=== PATIENT | female | born 1995 | race American Indian/Alaskan Native ===

== ENCOUNTER 2016-08-25 09:24 | Emergency (ER) | payer MEDICAID ==
[2016-08-25] MEDS ORDERED: NACL 0.9% 1000 ML IV ONE (10:14)
[2016-08-25] MEDS ORDERED: ZOFRAN IV ONE (10:14)
--- NOTE | 2016-08-25 10:19 | Emergency Department Report ---
HPI - General Chief Complaint: Dyspnea/Respdistress Time Seen by Provider: 08/25/16 10:04 - HPI HPI: Chief complaint: Nausea vomiting and diarrhea HPI: Patient with a history of asthma states that she ate some pineapple out of a can around 3:00 this morning and around 4:00 started having nausea vomiting and diarrhea. Patient states she vomited 4 or 5 times and had 3 episodes of watery diarrhea. Patient had some cramping when she had the diarrhea but currently has no pain. Patient is still slightly nauseated. Patient states the vomiting triggered an asthma attack and she was given a nebulizer in route by the EMS and no longer has any wheezing. Patient denies any dysuria or fever. Patient denies any lightheadedness. Mode of arrival: EMS Source: Patient Began: 4 AM Duration: See above Context: See above Quality: Cramping pain that has resolved Severity: 0 out of 10 Improved with: See above Worsened with: Nothing Associated signs and symptoms: See above ED Past Medical Hx - Past Medical History Previous Medical History?: Yes Hx Psychiatric Treatment: Yes Hx Asthma: Yes Additional medical history: Seasonal Allergies. 1 previous psychiatric admission. V-fib while in childbirth - Surgical History Past Surgical History?: Yes Additional Surgical History: csection - Social History Smoking Status: Current Every Day Smoker Substance Use Type: Alcohol - Medications Home Medications: Home Medications Medication Instructions Recorded Confirmed Last Taken Type Vit-Fe Fumar-FA [ 1 tab PO QDAY #90 tablet 07/14/15 Unknown Rx Vitamin] Promethazine [Phenergan TAB] 25 mg PO Q6HR PRN #14 tab 07/14/15 Unknown Rx Ondansetron [Zofran Odt] 4 mg PO Q4-6H PRN #14 tab.rapdis 08/25/16 Unknown Rx ED Review of Systems ROS: Stated complaint: LIZETTE/FLU SYMPTOMS Other details as noted in HPI ROS Constitutional: No fever ENT: No uri symptoms Cardiovascular: No chest pain Respiratory: No cough GI: See HPI : No dysuria frequency or urgency, Skin: No rash Neuro: No focal weakness or numbness Psych: History of depression after of her child [place]/lymph: No edema Physical Exam - Physical Exam Vital Signs: Vital Signs 08/25/16 09:47 Temperature 98.7 F Pulse Rate 105 H Respiratory 16 Rate Blood Pressure 106/53 O2 Sat by Pulse 99 Oximetry Physical Exam: GENERAL: The patient is well-developed well-nourished . HEENT: Normocephalic. Atraumatic. Extraocular motions are intact. Patient has moist mucous membranes. NECK: Supple. No meningitic signs are noted. There is no adenopathy noted. CHEST/LUNGS: Clear to auscultation. There is no respiratory distress noted. HEART/CARDIOVASCULAR: Regular. There is no tachycardia. There is no gallop rub or murmur. ABDOMEN: Abdomen is soft, nontender. Patient has normal bowel sounds. There is no abdominal distention. SKIN: There is no rash. There is no edema. There is no diaphoresis. NEURO: The patient is awake, alert, and oriented. The patient is cooperative. The patient has no focal neurologic deficits. The patient has normal speech. MUSCULOSKELETAL: There is no tenderness or deformity. There is no limitation range of motion. There is no evidence of acute injury. ED Course Vital Signs 08/25/16 09:47 Temperature 98.7 F Pulse Rate 105 H Respiratory 16 Rate Blood Pressure 106/53 O2 Sat by Pulse 99 Oximetry - Reevaluation(s) Reevaluation #1: 08/25/16 10:19 Patient will be given a liter normal saline and some Zofran IV. ED Medical Decision Making - Lab Data Result diagrams: 08/25/16 10:06 08/25/16 10:06 Laboratory Tests 08/25/16 10:08 Urine HCG, Qual Positive A - EKG Data -: EKG Interpreted by Ms EKG shows normal: sinus rhythm Rate: normal (64) - EKG Data When compared to previous EKG there are: previous EKG unavailable Interpretation: normal EKG - Radiology Data Radiology results: report reviewed (chest x-ray is negative. Patient ultrasound shows IUP of 9 weeks 4 days) Critical care attestation.: If time is entered above; I have spent that time in minutes in the direct care of this critically ill patient, excluding procedure time. ED Disposition Clinical Impression: Intrauterine , Morning sickness Disposition: DISCHARGED TO HOME OR SELFCARE Is pt being admited?: No Does the pt Need Aspirin: No Condition: Stable Instructions: Morning Sickness (ED) Prescriptions: Ondansetron [Zofran Odt] 4 mg PO Q4-6H PRN #14 tab.rapdis PRN Reason: Nausea And Vomiting Referrals: PRIMARY CARE, [Primary Care Provider] - 3-5 Days TITO VIZCAINO MD [Staff Physician] - 7-10 days (Dr. Vizcaino is a [employer] physician) Time of Disposition: 14:54
[2016-08-25 10:20] LABS: Basophils % (Auto) 0.1 % (0.0-1.8); Eosinophils % (Auto) 0.1 % (0.0-4.3); Hematocrit 32.6 % (30.3-42.9); Mean Corpuscular HGB Conc 34 % (30-34); Mean Corpuscular Hemoglobin 29 pg (28-32); Mean Corpuscular Volume 87 fl (79-97); Platelet Count 192 K/mm3 (140-440); Red Blood Count 3.76 M/mm3 (3.65-5.03); Red Cell Distribution Width 15.9 % (13.2-15.2); White Blood Count 6.5 K/mm3 (4.5-11.0)
[2016-08-25 10:32] LABS: Bilirubin,Urine NEG (Negative); Blood,Urine NEG (Negative); Ketones,Urine 80 mg/dL (Negative); Leukocyte Esterase,Urine TR (Negative); Mucus,Urine 3+ /HPF; Nitrite,Urine NEG (Negative); Protein,Urine <15 mg/dL mg/dL (Negative); Urobilinogen,Urine < 2.0 mg/dL (<2.0); WBC,Urine 0.5 /HPF (0.0-6.0)
[2016-08-25 10:40] LABS: Anion Gap 18 mmol/L; Blood Urea Nitrogen 12 mg/dL (7-17); Calcium 8.9 mg/dL (8.4-10.2); Carbon Dioxide 19 mmol/L (22-30); Chloride 101.8 mmol/L (98-107); Glucose 132 mg/dL (65-100); Potassium 3.5 mmol/L (3.6-5.0); Sodium 135 mmol/L (137-145)
--- NOTE | 2016-08-25 11:19 | Admit Criteria Form ---
Admission Criteria Documentation: OBSTETRIC AND GYNECOLOGIC DISEASE GRG Clinical Indications for Admission to Inpatient Care (Place 'X' for any and all applicable criteria): Hospital admission is needed for appropriate care of the patient because of ANY ONE of the following (1)(2)(3): [ ]I. Hemodynamic instability, as indicated by ALL of the following (1)(2)(3)( 4)(5): [ ]a) Vital signs or other findings not as expected for chronic patient condition or baseline [ ]b) Instability indicated by ANY ONE of the following: [ ]i) Hypotension [ ]ii) Symptomatic tachycardia unresponsive to treatment (eg, analgesia, fluids, sedation as indicated) [ ]iii) Inadequate perfusion indicated by ANY ONE of the following: [ ]A. Lactic acidosis (greater than 2 mmol/ L) [ ]B. New abnormal capillary refill ( greater than 3 seconds) [ ]C. Reduced urine output [ ]D. New altered mental status [ ]iv) Orthostatic vital sign changes unresponsive to treatment (eg, fluids) [ ]v) Multiple IV fluid boluses required to maintain adequate blood pressure or perfusion [ ]vi) IV inotropic or vasopressor medication required to maintain adequate blood pressure or perfusion [ ]II. Obstetric infection requiring hospitalization indicated by ANY ONE of the following(13)(14): [ ]a) Chorioamnionitis [ ]b) Endometritis (except mild endometritis) [ ]c) Pelvic abscess [ ]d) Peritonitis [ ]e) Septic pelvic thrombophlebitis [ ]III. Amniotic fluid or pulmonary embolism(4)(5)(6) [ ]IV. Suspected peritonitis or ectopic requiring monitoring beyond scope of 24 hours or observation care(7)(8) [ ]V. compromise requiring hospitalization indicated by ALL of the following(9)(10): [ ]a) compromise indicated by ANY ONE of the following(11): [ ]i) Abnormal heart rate monitoring [ ]ii) Abnormal contraction stress test [ ]iii) Abnormal biophysical profile [ ]iv) Abnormal Doppler flow in vessels (ie, Doppler velocimetry) (12) [ ]b) Persistence of compromise indicators during evaluation and observation monitoring [ ]. Ovarian hyperstimulation syndrome requiring hospitalization[A] indicated by ALL of the following(15): [ ]a) Recent ovarian stimulation with gonadotropins, or evidence on ultrasound of spontaneous emergence of large number of ovarian follicles [ ]b) Evidence of severe ovarian hyperstimulation syndrome indicated by ANY ONE of the following: [ ]i) Abdominal pain unresponsive to oral therapy [ ]ii) Acute respiratory distress syndrome [ ]iii) Electrolyte imbalance ( eg, hyponatremia, hyperkalemia) [ ]iv) Elevated liver enzymes [ ]v) Evidence of thromboembolism [ ]vi) Hemoconcentration (hematocrit greater than 45 % (0.45)) [ ]vii) Inability to maintain oral intake adequate to prevent hemoconcentration [ ]viii) Marked hypotension from baseline (eg, SBP 20 mmHg below patients usual pressure) [ ]ix) Oliguria or anuria [ ]x) Ovarian torsion [ ]xi) Pleural or pericardial effusion on x-ray or echocardiogram [ ]xii) Rapid increase in serum creatinine to greater than 1.2 mg/dL (106 micromoles/L) or creatinine clearance less than 50 mL/min/1.73m2 (0.84 mL/ sec/1.73m2) [ ]xiii) Ruptured ovarian cyst with hemorrhage [ ]xiv) Severe abdominal pain or peritoneal signs [ ]xv) Tense ascites that cannot be managed with paracentesis in outpatient setting [ ]VII.Pelvic infection requiring hospitalization indicated by ANY ONE of the following (16): [ ]a) Outpatient treatment has failed or is not appropriate (eg, inpatient monitoring required) [ ]b) Pelvic abscess [ ]c) Surgical emergency cannot be excluded (eg, rigid abdomen) [ ]d) Vomiting precluding outpatient and observation care management VIII. loss complications requiring inpatient medical treatment indicated by ANY ONE of the following (4)(7)(9): [ ]a) Fever [ ]b) Peritonitis [ ]c) Sepsis [ ]d) Severe abdominal pain [ ]IX. or patient requiring monitoring for severe heart failure, pulmonary disease, or other comorbid condition (eg, peripartum cardiomyopathy) (4)(17) [ ]X. patient with rupture of membranes requiring hospitalization indicated by ANY ONE of the following: [ ]a) Chorioamnionitis, cloudy amniotic fluid, or other evidence of infection [ ]b) compromise or other need for monitoring (11) [ ]c) Gestation longer than 23 weeks and ANY ONE of the following: [ ]i) Abnormal (noncephalic) presentation [ ]ii) Inadequate home environment (eg, home too far from hospital, unable to rapidly return to hospital) [ ]d) Temperature greater than 100.4 degrees F (38 degrees C)( oral) [ ]e) Threatened labor requiring monitoring beyond scope (eg, over 24 hours) of observation Care [ ] XI. complications, including severe lacerations, infections, or retained placenta (19) [ ] XII.Uterine bleeding with high-risk features indicated by ANY ONE of the following (4): [ ]a) Active major hemorrhage (eg, hemorrhage) [ ]b) Coagulopathy with active bleeding [ ]c) Gestational trophoblastic disease (eg, molar ) (20 ) [ ]d) (longer than 23 weeks) and ANY ONE of the following: [ ]i) Pain [ ]ii) Placental abruption, known or suspected [ ]iii) Placenta accrete, known or suspected(21) [ ]iv) Placenta previa, known or suspected [ ]v) Vasa previa [ ]e) Severe anemia [ ]XIII. Obstetric or Gynecologic Disease, condition or symptom for which ANY ONE of the following: [ ]a) Emergency and observation care have failed or are not considered appropriate ( Also use General Criteria: Observation Care Criteria as appropriate) [ ]b) Presence of a General Admission Criteria or Pediatric General Admission Criteria The original [facility] content created by [facility] has been revised. The portions of the content which have been revised are identified through the use of italic text or in bold, and [facility] has neither reviewed nor approved the modified material.All other unmodified content is copyright [facility]. Please see references footnoted in the original [facility] edition 2016 Admission Criteria Met: Pending
--- NOTE | 2016-08-25 11:19 | XRay Report ---
CHEST 2 VIEWS INDICATION: Shortness of breath.. COMPARISON: None similar. FINDINGS: PA and lateral chest radiographs demonstrate normal cardiomediastinal silhouette. Clear lungs. Intact bones. EKG leads. CONCLUSION: No acute disease in the chest. Thank you for the opportunity to participate in this patient's care.
[2016-08-25 12:19] VITALS: BP 107/66
--- NOTE | 2016-08-25 14:08 | Ultrasound Report ---
ULTRASOUND OB LESS THAN 14 WEEKS - TRANSABDOMINAL AND TRANSVAGINAL INDICATION: Pelvic pain. Serum beta-hCG of 64,149 units. COMPARISON: None similar during this gestation. FINDINGS: Transabdominal and transvaginal pelvic sonography performed in this patient with LMP of 06/20/2016 and estimated menstrual age of 9 weeks and 3 days. An anteverted, gravid uterus measuring approximately 14.7 x 5.2 x 7.7 cm demonstrates a single, live intrauterine gestation with heart rate of 176 beats per minute. Mean crown-rump length of 2.77 cm corresponds to 9 weeks and 4 days. Small yolk sac also seen. Small subchorionic hemorrhage estimated at 3.2 x 0.7 x 0.7 cm. No significant free fluid. Cervix appears closed. Both maternal ovaries identified, estimated at 4 x 1.5 x 1.5 cm on the right. Left ovary better visualized transabdominally due to its high location and estimated at 3.6 x 2.2 x 4 cm with an approximately 1.6 cm cyst/possible corpus luteum. CONCLUSION: 1. Single, live intrauterine gestation with an ultrasound estimated age of 9 weeks and 4 days and NANCI of 03/26/2017. 2. Few other findings, as above. Thank you for the opportunity to participate in this patient's care.
== END 2016-08-25 15:00 | disposition home or self-care (01) ==
LOC: ED 09:24
DX: O21.9 Vomiting of pregnancy, unspecified (principal); J45.909 Unspecified asthma, uncomplicated; F17.200 Nicotine dependence, unspecified, uncomplicated; Z3A.09 9 weeks gestation of pregnancy
CPT/HCPCS: 36415; 71020; 76801; 76817; 80048; 81001; 81025; 84702; 85025; 93005; 93010; 96361; 96374; 99285; J2405; J7030

== ENCOUNTER 2016-12-15 10:30 | Outpatient (CLI) | payer MEDICAID ==
[2016-12-15 10:51] VITALS: BP 90/46
[2016-12-15] MEDS ORDERED: TYLENOL PO ONE (11:38)
[2016-12-15] MEDS ORDERED: TYLENOL ONE (11:43)
== END 2016-12-15 11:55 | disposition home or self-care (01) ==
LOC: TRG 10:30
PROVIDERS: ATTEND Obstetrics & Gynecology
DX: O47.02 False labor before 37 completed weeks of gestation, second trimester (principal); Z3A.24 24 weeks gestation of pregnancy
CPT/HCPCS: 59025

== ENCOUNTER 2017-08-01 16:43 | Emergency (ER) | payer MEDICAID ==
[2017-08-01 18:23] LABS: Basophils % (Auto) 0.7 % (0.0-1.8); Eosinophils # (Auto) 0.1 K/mm3 (0.0-0.4); Eosinophils % (Auto) 2.4 % (0.0-4.3); Hematocrit 36.1 % (30.3-42.9); Hemoglobin 11.8 gm/dl (10.1-14.3); Lymphocytes # (Auto) 1.3 K/mm3 (1.2-5.4); Lymphocytes % (Auto) 29.4 % (13.4-35.0); Mean Corpuscular HGB Conc 33 % (30-34); Mean Corpuscular Hemoglobin 28 pg (28-32); Mean Corpuscular Volume 85 fl (79-97); Monocytes # (Auto) 0.4 K/mm3 (0.0-0.8); Monocytes % (Auto) 8.9 % (0.0-7.3); Platelet Count 202 K/mm3 (140-440); Red Blood Count 4.26 M/mm3 (3.65-5.03); Red Cell Distribution Width 16.2 % (13.2-15.2)
[2017-08-01 18:40] LABS: Alanine Aminotransferase 7 units/L (7-56); BUN/Creatinine Ratio 19; Blood Urea Nitrogen 13 mg/dL (7-17); Calcium 8.7 mg/dL (8.4-10.2); Hemolysis Index 3
[2017-08-01 18:51] LABS: Bacteria,Urine 1+ /HPF (Negative); Bilirubin,Urine NEG (Negative); Blood,Urine NEG (Negative); Color,Urine Yellow (Yellow); Mucus,Urine 3+ /HPF; Nitrite,Urine NEG (Negative); Protein,Urine <15 mg/dL mg/dL (Negative)
[2017-08-02] MEDS ORDERED: ZOFRAN ODT PO ONE (07:57)
[2017-08-02] MEDS ORDERED: K-DUR PO ONE (07:57)
[2017-08-02] MEDS ORDERED: TORADOL IM ONE (07:57)
[2017-08-02] MEDS ORDERED: ULTRAM PO ONE (07:57)
--- NOTE | 2017-08-02 08:02 | Emergency Department Report ---
ED General Adult HPI - General Chief complaint: Abdominal Pain Stated complaint: FLU LIKE SYMPTOMS Time Seen by Provider: 08/02/17 06:42 Source: patient Mode of arrival: Ambulatory Limitations: No Limitations - History of Present Illness Initial comments: 22-year-old female with a past medical history asthma presents to the hospital complaining of generalized body aches, nausea, diarrhea, and cough 4 days. Cough is productive of white sputum. No fever reported. Patient states she has generalized body aches that are worse with cough, movement, and palpation. Positive nausea without vomiting reported. Multiple episodes of diarrhea over the past 4 days reported. No melena, hematochezia, hematemesis, sick contacts, antibiotic use, or recent travel reported. Patient has asthma states she has been wheezing more often than usual with associated shortness of breath. PMD none Severity scale (0 -10): 0 - Related Data Previous Rx's Medication Instructions Recorded Last Taken Type Vit-Fe Fumar-FA [ 1 tab PO QDAY #90 tablet 07/14/15 Unknown Rx Vitamin] Promethazine [Phenergan TAB] 25 mg PO Q6HR PRN #14 tab 07/14/15 Unknown Rx Acetaminophen [Acetaminophen TAB] 650 mg PO TID #30 tablet 10/14/16 Unknown Rx Nitrofurantoin [place]/M-Cryst 100 mg PO Q12HR #14 capsule 10/14/16 Unknown Rx [Macrobid CAP] Ondansetron [Zofran Odt] 4 mg PO Q4-6H PRN #14 tab.rapdis 10/14/16 Unknown Rx Ibuprofen [Motrin] 800 mg PO Q8HR PRN #30 tablet 08/02/17 Unknown Rx Ondansetron [Zofran Odt] 4 mg PO Q8HR PRN #20 tab.rapdis 08/02/17 Unknown Rx predniSONE [Deltasone] 40 mg PO QDAY 5 Days tab 08/02/17 Unknown Rx traMADol [Ultram 50 MG tab] 50 mg PO Q6HR PRN #2103 tablet 08/02/17 Unknown Rx Allergies Allergy/AdvReac Type Severity Reaction Status Date / Time plum [[place]] Allergy Swelling Verified 06/20/13 14:52 mushroom Allergy Swelling Uncoded 06/20/13 14:52 seafood Allergy Swelling Uncoded 10/14/16 12:59 stringbeans Allergy Swelling Uncoded 06/20/13 14:52 ED Review of Systems ROS: Stated complaint: FLU LIKE SYMPTOMS Other details as noted in HPI Comment: All other systems reviewed and negative Other: Constitutional: No fevers chills Eyes: No eye pain visual changes or discharge ENT: Mild sore throat Neck: Positive neck Respiratory: As per HPI Cardiovascular: Denies palpitations, syncope GI: As per HPI : Denies dysuria Musculoskeletal: Positive back pain Skin: Denies rash, lesions, erythema Neurologic: Denies headache, numbness, weakness Psychiatric: Denies suicidal ideation, hallucinations ED Past Medical Hx - Past Medical History Hx Hypertension: No Hx Congestive Heart Failure: No Hx Diabetes: No Hx Deep Vein Thrombosis: No Hx Renal Disease: No Hx Sickle Cell Disease: No Hx Seizures: No Hx Psychiatric Treatment: Yes Hx Asthma: Yes Hx COPD: No Hx HIV: No Additional medical history: Seasonal Allergies. 1 previous psychiatric admission - Surgical History Additional Surgical History: csection - Social History Smoking Status: Current Every Day Smoker Substance Use Type: Marijuana - Medications Home Medications: Home Medications Medication Instructions Recorded Confirmed Last Taken Type Vit-Fe Fumar-FA [ 1 tab PO QDAY #90 tablet 07/14/15 Unknown Rx Vitamin] Promethazine [Phenergan TAB] 25 mg PO Q6HR PRN #14 tab 07/14/15 Unknown Rx Acetaminophen [Acetaminophen TAB] 650 mg PO TID #30 tablet 10/14/16 Unknown Rx Nitrofurantoin [place]/M-Cryst 100 mg PO Q12HR #14 capsule 10/14/16 Unknown Rx [Macrobid CAP] Ondansetron [Zofran Odt] 4 mg PO Q4-6H PRN #14 tab.rapdis 10/14/16 Unknown Rx Ibuprofen [Motrin] 800 mg PO Q8HR PRN #30 tablet 08/02/17 Unknown Rx Ondansetron [Zofran Odt] 4 mg PO Q8HR PRN #20 tab.rapdis 08/02/17 Unknown Rx predniSONE [Deltasone] 40 mg PO QDAY 5 Days tab 08/02/17 Unknown Rx traMADol [Ultram 50 MG tab] 50 mg PO Q6HR PRN #2103 tablet 08/02/17 Unknown Rx ED Physical Exam - General Limitations: No Limitations - Other Other exam information: General: No limitations, patient is alert in no acute distress Head exam: Atraumatic, normocephalic Eyes exam: Normal appearance ENT: Moist mucous membrane, normal oropharynx Neck exam: Normal inspection, full range of motion, no meningismus nontender Respiratory exam: Clear to auscultation bilateral, no wheezes, rales, crackles Cardiovascular: Normal rate and rhythm, normal heart sounds, anterior chest wall tenderness Abdomen: Soft, nondistended, generalized tenderness, with normal bowel sounds, no rebound, or guarding Extremity: Full range of motion normal inspection no deformity Neurology: Alert and oriented 3, cranial nerves intact, no motor or sensory deficit Back: Normal Inspection, full range of motion, tenderness to bilateral lumbar paraspinal muscle Epigastric: Normal mood and affect Skin: Warm, dry, intact, no rash ED Course Vital Signs 08/01/17 08/02/17 08/02/17 17:26 04:15 05:06 Temperature 97.8 F 97.6 F 97.6 F Pulse Rate 70 73 60 Respiratory 20 16 16 Rate Blood Pressure 97/64 110/50 Blood Pressure 108/46 [Left] O2 Sat by Pulse 100 100 99 Oximetry 08/02/17 08/02/17 08/02/17 07:15 08:45 08:46 Temperature Pulse Rate 73 Respiratory 16 16 16 Rate Blood Pressure Blood Pressure 104/52 [Left] O2 Sat by Pulse 97 Oximetry - Reevaluation(s) Reevaluation #1: 08/02/17 08:03 Motrin, tramadol, Zofran, and potassium ordered ED Medical Decision Making - Lab Data Result diagrams: 08/01/17 18:10 08/01/17 18:10 Lab Results 08/01/17 08/01/17 08/01/17 Range/Units 17:40 18:10 18:10 WBC 4.3 L (4.5-11.0) K/mm3 RBC 4.26 (3.65-5.03) M/mm3 Hgb 11.8 (10.1-14.3) gm/dl Hct 36.1 (30.3-42.9) % MCV 85 (79-97) fl MCH 28 (28-32) pg MCHC 33 (30-34) % RDW 16.2 H (13.2-15.2) % Plt Count 202 (140-440) K/mm3 Lymph % (Auto) 29.4 (13.4-35.0) % [place] % (Auto) 8.9 H (0.0-7.3) % Eos % (Auto) 2.4 (0.0-4.3) % Baso % (Auto) 0.7 (0.0-1.8) % Lymph # 1.3 (1.2-5.4) K/mm3 [place] # 0.4 (0.0-0.8) K/mm3 Eos # 0.1 (0.0-0.4) K/mm3 Baso # 0.0 (0.0-0.1) K/mm3 Seg Neutrophils % 58.6 (40.0-70.0) % Seg Neutrophils # 2.5 (1.8-7.7) K/mm3 Sodium 140 (137-145) mmol/L Potassium 3.4 L (3.6-5.0) mmol/L Chloride 103.8 (98-107) mmol/L Carbon Dioxide 23 (22-30) mmol/L Anion Gap 17 mmol/L BUN 13 (7-17) mg/dL Creatinine 0.7 (0.7-1.2) mg/dL Estimated GFR > 60 ml/min BUN/Creatinine Ratio 19 % Glucose 80 (65-100) mg/dL Calcium 8.7 (8.4-10.2) mg/dL Total Bilirubin 0.20 (0.1-1.2) mg/dL AST 15 (5-40) units/L ALT 7 (7-56) units/L Alkaline Phosphatase 55 (35-129) units/L Total Protein 7.3 (6.3-8.2) g/dL Albumin 4.0 (3.9-5) g/dL Albumin/Globulin Ratio 1.2 % HCG, Qual (Negative) Urine Color Yellow (Yellow) Urine Turbidity Clear (Clear) Urine pH 5.0 (5.0-7.0) Ur Specific Ward 1.033 H (1.003-1.030) Urine Protein <15 mg/dl (Negative) mg/dL Urine Glucose (UA) Neg (Negative) mg/dL Urine Ketones Neg (Negative) mg/dL Urine Blood Neg (Negative) Urine Nitrite Neg (Negative) Urine Bilirubin Neg (Negative) Urine Urobilinogen 2.0 (<2.0) mg/dL Ur Leukocyte Esterase Neg (Negative) Urine WBC (Auto) 1.0 (0.0-6.0) /HPF Urine RBC (Auto) 3.0 (0.0-6.0) /HPF U Epithel Cells (Auto) 5.0 (0-13.0) /HPF Urine Bacteria (Auto) 1+ (Negative) /HPF Urine Mucus 3+ /HPF 08/01/17 Range/Units 18:10 WBC (4.5-11.0) K/mm3 RBC (3.65-5.03) M/mm3 Hgb (10.1-14.3) gm/dl Hct (30.3-42.9) % MCV (79-97) fl MCH (28-32) pg MCHC (30-34) % RDW (13.2-15.2) % Plt Count (140-440) K/mm3 Lymph % (Auto) (13.4-35.0) % [place] % (Auto) (0.0-7.3) % Eos % (Auto) (0.0-4.3) % Baso % (Auto) (0.0-1.8) % Lymph # (1.2-5.4) K/mm3 [place] # (0.0-0.8) K/mm3 Eos # (0.0-0.4) K/mm3 Baso # (0.0-0.1) K/mm3 Seg Neutrophils % (40.0-70.0) % Seg Neutrophils # (1.8-7.7) K/mm3 Sodium (137-145) mmol/L Potassium (3.6-5.0) mmol/L Chloride (98-107) mmol/L Carbon Dioxide (22-30) mmol/L Anion Gap mmol/L BUN (7-17) mg/dL Creatinine (0.7-1.2) mg/dL Estimated GFR ml/min BUN/Creatinine Ratio % Glucose (65-100) mg/dL Calcium (8.4-10.2) mg/dL Total Bilirubin (0.1-1.2) mg/dL AST (5-40) units/L ALT (7-56) units/L Alkaline Phosphatase (35-129) units/L Total Protein (6.3-8.2) g/dL Albumin (3.9-5) g/dL Albumin/Globulin Ratio % HCG, Qual Negative (Negative) Urine Color (Yellow) Urine Turbidity (Clear) Urine pH (5.0-7.0) Ur Specific Ward (1.003-1.030) Urine Protein (Negative) mg/dL Urine Glucose (UA) (Negative) mg/dL Urine Ketones (Negative) mg/dL Urine Blood (Negative) Urine Nitrite (Negative) Urine Bilirubin (Negative) Urine Urobilinogen (<2.0) mg/dL Ur Leukocyte Esterase (Negative) Urine WBC (Auto) (0.0-6.0) /HPF Urine RBC (Auto) (0.0-6.0) /HPF U Epithel Cells (Auto) (0-13.0) /HPF Urine Bacteria (Auto) (Negative) /HPF Urine Mucus /HPF - Radiology Data Radiology results: report reviewed Chest x-ray: Unremarkable and unchanged since 08/25/2016 - Medical Decision Making Plan to send patient home with diagnosis of viral syndrome. Symptomatic treatment will be provided. Short course of steroids for increased wheezing provided. No wheezing on exam - Differential Diagnosis pneumonia, appendicitis, gastroenteritis, viral syndrome, flu, UTI Critical Care Time: No Critical care attestation.: If time is entered above; I have spent that time in minutes in the direct care of this critically ill patient, excluding procedure time. ED Disposition Clinical Impression: Viral syndrome Disposition: DC- TO HOME OR SELFCARE Is pt being admited?: No Does the pt Need Aspirin: No Condition: Stable Instructions: Viral Syndrome (ED) Additional Instructions: Follow-up with either the clinic or doctor provided. Take the medications as prescribed. Please return symptoms are as as indicated by the discharge instructions. Prescriptions: Ibuprofen [Motrin] 800 mg PO Q8HR PRN #30 tablet PRN Reason: Pain Ondansetron [Zofran Odt] 4 mg PO Q8HR PRN #20 tab.rapdis PRN Reason: Nausea And Vomiting predniSONE [Deltasone] 40 mg PO QDAY 5 Days tab traMADol [Ultram 50 MG tab] 50 mg PO Q6HR PRN #2103 tablet PRN Reason: Pain Referrals: NAVA WELDON MD [Staff Physician] - 3-5 Days [facility] [Provider Group] - 3-5 Days Time of Disposition: 09:56
--- NOTE | 2017-08-02 09:02 | XRay Report ---
ROUTINE CHEST, TWO VIEWS: HISTORY: Cough, body aches. The trachea, heart, mediastinal contour, lung goldman and bony thorax are unremarkable. IMPRESSION: Unremarkable chest x-ray. No change since 08/25/16.
[2017-08-02 11:25] VITALS: BP 95/41
== END 2017-08-02 11:23 | disposition home or self-care (01) ==
LOC: ED 16:43
DX: B34.9 Viral infection, unspecified (principal); F17.200 Nicotine dependence, unspecified, uncomplicated; F12.10 Cannabis abuse, uncomplicated; Z91.013 Allergy to seafood; Z91.018 Allergy to other foods
CPT/HCPCS: 36415; 71020; 80053; 81001; 84703; 85025; 96372; 99284; J1885; Q0162